=== PATIENT | female | born 1965 | race Caucasian/White ===

== ENCOUNTER 2020-12-14 06:39 | Emergency (ER) | payer BC ==
[2020-12-14] MEDS ORDERED: Sodium Chloride 0.9% 1000 ML 1,000 ML IV STA (07:38)
[2020-12-14] MEDS ORDERED: Sodium Chloride 0.9% 1000 ML 1,000 ML ONE (07:47)
--- NOTE | 2020-12-14 07:58 | ERPHSYRPT ---
- History of Present Illness Time Seen by Provider: 12/14/20 07:05 Historian: patient Exam Limitations: no limitations Patient Subjective Stated Complaint: pt c/o abd pain since Friday evening, indigestion, nausea and no vomiting. Triage Nursing Assessment: pt c/o abd pain since last Friday evening, nausea, indigestion but no vomiting. Pt has some low back pain but also has psoriatic arthritis. Pt c/o abd pain going straight across abd, bs present x4 quad, nontender. Pt denies diarrhea. Physician History: Patient is a 55-year-old female presents to our ED with complaints of abdominal pain that has been ongoing for 5 days. Patient followed up with her primary care doctor who ordered basic labs. Labs were within normal limits. Labs were performed on 12/11/2020. Abdominal pain described as an ache that is primarily epigastric. Patient concerned that it may be her hiatal hernia. Patient is mildly nauseous. No vomiting. No diaphoresis. No trauma no fever. Symptoms are constant. Symptoms are moderate in intensity. No specific worsening or improving factors. Patient states he is otherwise healthy. She voices no other complaints concerns at this time. Timing/Duration: day(s) (5 days) Activities at Onset: none Quality: aching Abdominal Pain Onset Location: epigastric Pain Radiation: no radiation Severity of Pain-Max: mild Severity of Pain-Current: moderate Modifying Factors: Improves With: nothing Associated Symptoms: other (Patient has some lower back discomfort however patient believes this may be due to her psoriatic arthritis) Previous symptoms: no prior history Allergies/Adverse Reactions: aspirin Allergy (Intermediate, Verified 12/14/20 07:02) Swelling of Face cantaloupe Adverse Reaction (Intermediate, Verified 12/14/20 07:03) Difficulty Breathing latex Adverse Reaction (Mild, Verified 12/14/20 07:02) Rash Hx Tetanus, Diphtheria Vaccination/Date Given: Yes Hx Influenza Vaccination/Date Given: No Hx Pneumococcal Vaccination/Date Given: No Immunizations Up to Date: Yes Travel Risk - International Travel Have you traveled outside of the country in past 3 weeks: No - Coronavirus Screening Are you exhibiting any of the following symptoms?: No Close contact with a COVID-19 positive Pt in past 14-21 Days: No - Vaccine Status Have you recieved a Covid-19 vaccination: Yes Reception Manager: Moderna - Vaccination Dates Date of 2cond Vaccination (if applicable): 10/13/20 - Review of Systems Constitutional: No Symptoms, No Fever, No Chills Eyes: No Symptoms Ears, Nose, & Throat: No Symptoms Respiratory: No Symptoms, No Cough, No Dyspnea Cardiac: No Symptoms, No Chest Pain, No Edema, No Syncope Abdominal/Gastrointestinal: No Symptoms, No Abdominal Pain, No Nausea, No Vomiting, No Diarrhea Genitourinary Symptoms: No Symptoms, No Dysuria Musculoskeletal: No Symptoms, No Back Pain, No Neck Pain Skin: No Symptoms, No Rash Neurological: No Symptoms, No Dizziness, No Focal Weakness, No Sensory Changes Psychological: No Symptoms Endocrine: No Symptoms Hematologic/Lymphatic: No Symptoms Immunological/Allergic: No Symptoms All Other Systems: Reviewed and Negative - Past Medical History Pertinent Past Medical History: Yes Neurological History: Migraines ENT History: No Pertinent History Cardiac History: High Cholesterol, Hypertension Respiratory History: Asthma, Bronchitis, Pneumonia Endocrine Medical History: Hypothyroidism, Other Musculoskeletal History: Arthritis GI Medical History: Diverticulitis, GERD, Hernia History: No Pertinent History Psycho-Social History: No Pertinent History Female Reproductive Disorders: Endometriosis, Menstrual Problems - Past Surgical History Past Surgical History: Yes Neuro Surgical History: No Pertinent History Cardiac: No Pertinent History Respiratory: No Pertinent History Gastrointestinal: No Pertinent History Genitourinary: No Pertinent History Musculoskeletal: No Pertinent History Female Surgical History: Hysterectomy - Social History Smoking Status: Current every day smoker How long have you smoked: 34 yrs Exposure to second hand smoke: No Drug Use: none Patient Lives Alone: No - Female History Hx Now: No - Nursing Vital Signs Nursing Vital Signs: Initial Vital Signs Temperature 98.0 F 12/14/20 06:46 Pulse Rate 96 H 12/14/20 06:46 Respiratory Rate 20 12/14/20 06:46 Blood Pressure 193/127 12/14/20 06:46 O2 Sat by Pulse Oximetry 97 12/14/20 06:46 Pain Scale Pain Intensity 4 - Physical Exam General Appearance: no apparent distress, alert Eye Exam: PERRL/EOMI, eyes nml inspection Ears, Nose, Throat Exam: normal ENT inspection, pharynx normal, moist mucous membranes Neck Exam: normal inspection, non-tender, supple, full range of motion Respiratory Exam: normal breath sounds, lungs clear, No respiratory distress Cardiovascular Exam: regular rate/rhythm, normal heart sounds Gastrointestinal/Abdomen Exam: soft, tenderness, other (Epigastric tenderness to palpation. Overlying soft tissue intact. No signs of trauma.), No mass Back Exam: normal inspection, normal range of motion, No CVA tenderness, No vertebral tenderness Extremity Exam: normal inspection, normal range of motion, pelvis stable Neurologic Exam: alert, oriented x 3, cooperative, normal mood/affect, nml cerebellar function, sensation nml, No motor deficits Skin Exam: normal color, warm, dry Lymphatic Exam: No adenopathy SpO2 Interpretation: normal SpO2: 95 O2 Delivery: Room Air - Course Nursing assessment & vital signs reviewed: Yes EKG Interpreted by Me: RATE (73), Sinus Rhythm, NORMAL AXIS, NORMAL INTERVALS - CT Exams Abdomen/Pelvis CT Interpretation: Tele-radiologist Report (Lining diverticulosis, chronic bony findings, old granulomatous disease. Remaining CT abdomen pelvis without contrast exam is negative) Ordered Tests: Active Orders 24 hr Category Date Time Status EKG-ER Only STAT Care 12/14/20 07:38 Active IV Insertion STAT Care 12/14/20 07:38 Active ABDOMEN AND PELVIS W/0 CONTRAS [CT] Stat Exams 12/14/20 07:48 Completed LIPASE Stat Lab 12/14/20 07:51 Completed TROPONIN Q3H Lab 12/14/20 07:51 Completed TROPONIN Q3H Lab 12/14/20 10:45 Ordered TROPONIN Q3H Lab 12/14/20 13:45 Ordered TROPONIN Q3H Lab 12/14/20 16:45 Ordered TROPONIN Q3H Lab 12/14/20 19:45 Ordered Medication Summary Discontinued Medications Generic Name Dose Route Start Last Admin Trade Name Freq PRN Reason Stop Dose Admin Sodium Chloride 1,000 mls @ 999 mls/hr 12/14/20 07:38 12/14/20 07:50 Sodium Chloride 0.9% 1000 Ml IV 12/14/20 08:38 999 mls/hr .Q1H1M STA Administration Sodium Chloride Confirm 12/14/20 07:47 Sodium Chloride 0.9% 1000 Ml Administered 12/14/20 07:48 Dose 1,000 mls @ ud .ROUTE .STK-MED ONE Lab/Rad Data: Laboratory Results 12/14/20 12/14/20 Range/Units 07:51 07:51 Troponin I < 0.012 (0.000-0.034) ng/mL Lipase 144 (23-300) U/L - Progress Progress: improved Progress Note: Patient reassessed. She continues to feel "okay". Patient declined pain medication. Patient recently had a complete laboratory work-up. This was ordered by her primary care doctor labs are all within normal limits. No indication to repeat these labs at this time. However we did add labs that were not originally done. Lipase is within normal limits. Troponin negative. EKG is normal sinus rhythm. CT abdomen pelvis shows diverticulosis chronic bony findings and old granulomatous disease. Remaining CT abdomen pelvis without contrast exam is negative. Patient received a prescription for Bentyl. No indication for further work-up at this time. Patient appears comfortable. Vitals stable. Patient voices no other complaints concerns at this time. Will discharge home. Patient agrees to follow-up with her primary care doctor within 48 hours for reevaluation. 12/14/20 08:57 Counseled pt/family regarding: lab results, diagnosis, need for follow-up, rad results - Departure Departure Disposition: Home Clinical Impression: Abdominal pain, Diverticulosis, Levoscoliosis, Degenerative arthritis of spine Condition: Stable Critical Care Time: No Referrals: SALINAS BULL MD [Primary Care Provider] - Additional Instructions: Discharge/Care Plan JESSICA WEIR was seen on 12/14/20 in the Emergency Room. The patient was counseled regarding Diagnosis,Lab results, Imaging studies, need for follow up and when to return to the Emergency Room. Prescriptions given: Discharge Note I have spoken with the patient and/or caregivers. I have explained the patient's condition, diagnosis and treatment plan based on the information available to me at this time. I have answered the patient's and/or caregiver's questions and addressed any concerns. The patient and/or caregivers have as good understanding of the patient's diagnosis, condition and treatment plan as can be expected at this point. The vital signs have been stable. The patient's condition is stable and appropriate for discharge from the emergency department. The patient will pursue further outpatient evaluation with the primary care physician or other designated or consulting physician as outlined in the discharge instructions. The patient and/or caregivers are agreeable to this plan of care and follow-up instructions have been explained in detail. The patient and/or caregivers have received these instruction. The patient/and or caregivers are aware that any significant change in condition or worsening of symptoms should prompt an immediate return to this or the closest emergency department or call 911. Prescriptions: Dicyclomine HCl 20 mg [Bentyl 20 mg] 20 mg PO TID 5 Days #15 tablet
--- NOTE | 2020-12-14 08:45 | XRAY ---
Indication: Abdomen pain. Multiple contiguous axial images obtained through the abdomen and pelvis without contrast. Comparison: None Lung bases demonstrate mild bibasilar discoid atelectasis/scarring and a few tiny calcified granulomas. No infiltrate or effusion. Heart is not enlarged. Noncontrasted stomach and bowel loops appear nonobstructed. Normal air-filled appendix. Mild scattered colonic diverticulosis without diverticulitis. Tiny hepatic calcified granuloma. Uterus surgically absent. No free fluid/air. Remaining liver, gallbladder, pancreas, spleen, adrenal glands, kidneys, ureters, and bladder appear unremarkable for noncontrast exam. Mild scattered aortoiliac calcifications without AAA. Osseous structures intact with degenerative changes throughout the thoracolumbar spine, minimal levoscoliosis centered at L3, and 3-4 mm right femur head bone island. No ventral or inguinal hernias. Impression: 1. Colonic diverticulosis, chronic bony findings, and old granulomatous disease. 2. Remaining CT abdomen/pelvis without contrast exam is negative.
[2020-12-14 09:15] VITALS: BP 122/71; PULSE 68; O2SAT 99
== END 2020-12-14 09:20 | disposition home or self-care (01) ==
LOC: ED 06:39
DX: R10.9 Unspecified abdominal pain (principal); K57.90 Diverticulosis of intestine, part unspecified, without perforation or abscess without bleeding; M41.9 Scoliosis, unspecified; M46.96 Unspecified inflammatory spondylopathy, lumbar region; I10 Essential (primary) hypertension; K21.9 Gastro-esophageal reflux disease without esophagitis; E78.00 Pure hypercholesterolemia, unspecified; E03.9 Hypothyroidism, unspecified; N80.9 Endometriosis, unspecified; Z72.0 Tobacco use
CPT/HCPCS: 36000; 36415; 74176; 83690; 84484; 93005; 96360; 99284

== ENCOUNTER 2024-11-14 12:36 | Emergency (ER) | payer BC ==
[2024-11-14 12:49] VITALS: TEMP 97.1
--- NOTE | 2024-11-14 12:50 | ERPHSYRPT ---
- History of Present Illness Time Seen by Provider: 11/14/24 12:40 Source: patient Exam Limitations: no limitations Physician History: 59yo f pmhx DM2, partial hysterectomy, frequent UTIs presents via private vehicle for dysuria, frequency and hematuria that started last night. Pt reports her hematuria has significantly worsened this AM, states she has never seen this much blood in her urine before. Pt denies any significant abdominal pain, does endorse some left sided low back pain but denies flank pain, n/v or diarrhea. Pt denies any fevers at home. Timing/Duration: yesterday Quality: burning Onset Location: suprapubic, low back pain Pain Radiation: none Severity of Pain-Max: mild Severity of Pain-Current: mild Prior abdominal problems: UTI Sexual intercourse history: non-contributory Modifying Factors: Improves With: nothing Associated Symptoms: dysuria, polyuria, urinary frequency, lower back pain, No abdominal pain, No fever, No loss of bladder control Allergies/Adverse Reactions: aspirin Allergy (Intermediate, Verified 11/14/24 12:50) Swelling of Face Sulfa (Sulfonamide Antibiotics) Allergy (Verified 11/14/24 12:50) cantaloupe Adverse Reaction (Intermediate, Verified 11/14/24 12:50) Difficulty Breathing latex Adverse Reaction (Mild, Verified 11/14/24 12:50) Rash Home Medications: Empagliflozin/Metformin HCl [Synjardy Xr 25-1,000 mg Tablet] 1 each PO DAILY 11/14/24 [History] Famotidine [Pepcid] 40 mg PO DAILY 11/14/24 [History] Fluticasone Propionate [Flonase NASAL] 2 sprays IN DAILY 11/14/24 [History] Hydrochlorothiazide 25 mg [hydroDIURIL 25 MG] 25 mg PO DAILY 11/14/24 [History] Rosuvastatin Calcium [Crestor] 5 mg PO DAILY 11/14/24 [History] Hx Tetanus, Diphtheria Vaccination/Date Given: Yes Hx Influenza Vaccination/Date Given: No Hx Pneumococcal Vaccination/Date Given: No - Review of Systems Constitutional: No Symptoms Respiratory: No Symptoms Cardiac: No Symptoms Abdominal/Gastrointestinal: Abdominal Pain, No Nausea, No Vomiting, No Diarrhea, No Constipation Genitourinary Symptoms: Dysuria, Frequency, Hematuria, Urgency, No Urinary Retention, No Flank Pain - Past Medical History Pertinent Past Medical History: Yes Neurological History: Migraines ENT History: No Pertinent History Cardiac History: High Cholesterol, Hypertension Respiratory History: Asthma, Bronchitis, Pneumonia Endocrine Medical History: Hypothyroidism, Other Musculoskeletal History: Arthritis GI Medical History: Diverticulitis, GERD, Hernia History: No Pertinent History Psycho-Social History: No Pertinent History Female Reproductive Disorders: Endometriosis, Menstrual Problems - Past Surgical History Past Surgical History: Yes Neuro Surgical History: No Pertinent History Cardiac: No Pertinent History Respiratory: No Pertinent History Gastrointestinal: No Pertinent History Genitourinary: No Pertinent History Musculoskeletal: No Pertinent History Female Surgical History: Hysterectomy - Social History Smoking Status: Current every day smoker How long have you smoked: 34 yrs Exposure to second hand smoke: No Drug Use: none Patient Lives Alone: No - Nursing Vital Signs Nursing Vital Signs: Initial Vital Signs Temperature 97.1 F 11/14/24 12:44 Pulse Rate 75 11/14/24 12:44 Respiratory Rate 26 H 11/14/24 12:44 Blood Pressure 109/80 11/14/24 12:44 O2 Sat by Pulse Oximetry 98 11/14/24 12:44 Pain Scale Pain Intensity 0 - Physical Exam General Appearance: no apparent distress, alert Respiratory Exam: normal breath sounds, lungs clear, airway intact, No chest t enderness, No respiratory distress Cardiovascular Exam: regular rate/rhythm, normal heart sounds, normal peripheral pulses Gastrointestinal/Abdomen Exam: soft, normal bowel sounds, No tenderness, No distention, No mass, No guarding SpO2 Interpretation: normal SpO2: 98 O2 Delivery: Room Air Ordered Tests: Active Orders 24 hr Category Date Time Status ABDOMEN AND PELVIS W/0 CONTRAS [CT] Stat Exams 11/14/24 13:11 Completed CBC W DIFF Stat Lab 11/14/24 13:10 Completed CK (IN-HOUSE) [CK-Creatinine Phosphokinase] Stat Lab 11/14/24 13:10 Completed CMP Stat Lab 11/14/24 13:10 Completed CULTURE,URINE Stat Lab 11/14/24 12:44 Received UA W/RFX UR CULTURE Stat Lab 11/14/24 12:44 Completed Medication Summary Discontinued Medications Generic Name Dose Route Start Last Admin Trade Name Freq PRN Reason Stop Dose Admin Cefdinir 300 mg 11/14/24 14:04 11/14/24 14:18 Cefdinir 300 Mg Capsule PO 11/14/24 14:05 300 mg ONCE ONE Administration Lab/Rad Data: Laboratory Result Diagrams 11/14/24 13:10 11/14/24 13:10 Laboratory Results 11/14/24 11/14/24 11/14/24 Range/Units 13:10 13:10 13:10 WBC 10.2 H (3.98-10.04) x10^3/uL RBC 5.38 H (3.93-5.22) x10^6/uL Hgb 16.4 H (11.2-15.7) g/dL Hct 47.3 H (34.1-44.9) % MCV 87.9 (79.4-94.8) fL MCH 30.5 (25.6-32.2) pg MCHC 34.7 (32.2-35.5) g/dL RDW 13.2 (11.7-14.4) % Plt Count 236 (182-369) x10^3/uL MPV 9.8 (9.4-12.3) fL Gran % 68.5 (34.0-71.1) % Immature Gran % (Auto) 0.3 (0.001-0.429) % Nucleat RBC Rel Count 0.0 (0.00-0.2) % Eos # (Auto) 0.14 (0.04-0.36) x10^3/uL Immature Gran # (Auto) 0.03 (0.001-0.031) x10^3u/L Absolute Lymphs (auto) 2.31 (1.18-3.74) x10^3/uL Absolute Monos (auto) 0.67 (0.24-0.86) x10^3/uL Absolute Nucleated RBC 0.00 (0.00-0.012) x10^3u/L Lymphocytes % 22.7 (19.3-51.7) % Monocytes % 6.6 (4.7-12.5) % Eosinophils % 1.4 (0.7-5.8) % Basophils % 0.5 (0.1-1.2) % Absolute Granulocytes 6.98 H (1.56-6.13) x10^3/uL Basophils # 0.05 (0.01-0.08) x10^3/uL Sodium 138 (135-145) mmol/L Potassium 3.4 L (3.5-5.1) mmol/L Chloride 101 (98-107) mmol/L Carbon Dioxide 23 (22-30) mmol/L Anion Gap 17.1 H (5-15) MEQ/L BUN 13 (7-17) mg/dL Creatinine 0.55 (0.52-1.04) mg/dL Estimated GFR 105.5 ML/MIN Glucose 95 (74-106) mg/dL Calcium 9.8 (8.4-10.2) mg/dL Total Bilirubin 0.90 (0.2-1.3) mg/dL AST 38 H (14-36) U/L ALT 34 (0-35) U/L Alkaline Phosphatase 78 (38-126) U/L Creatine Kinase 40 (30-135) U/L Serum Total Protein 8.1 (6.3-8.2) g/dL Albumin 4.9 (3.5-5.0) g/dL Urine Color (Yellow) Urine Appearance (Clear) Urine pH (4.6-8.0) Ur Specific Molino (1.005-1.030) Urine Protein (Negative) Urine Glucose (UA) (Negative) mg/dL Urine Ketones (Negative) Urine Blood (Negative) Urine Nitrite (Negative) Urine Bilirubin (Negative) Urine Urobilinogen (0.2) mg/dL Ur Leukocyte Esterase (Negative) U Hyaline Cast (Auto) (0-2) /LPF Urine Microscopic RBC (0-5) /HPF Urine Microscopic WBC (0-5) /HPF Ur Epithelial Cells (None Seen) /HPF Urine Bacteria (None Seen) /HPF Urine Culture Reflexed (NO) 11/14/24 Range/Units 12:44 WBC (3.98-10.04) x10^3/uL RBC (3.93-5.22) x10^6/uL Hgb (11.2-15.7) g/dL Hct (34.1-44.9) % MCV (79.4-94.8) fL MCH (25.6-32.2) pg MCHC (32.2-35.5) g/dL RDW (11.7-14.4) % Plt Count (182-369) x10^3/uL MPV (9.4-12.3) fL Gran % (34.0-71.1) % Immature Gran % (Auto) (0.001-0.429) % Nucleat RBC Rel Count (0.00-0.2) % Eos # (Auto) (0.04-0.36) x10^3/uL Immature Gran # (Auto) (0.001-0.031) x10^3u/L Absolute Lymphs (auto) (1.18-3.74) x10^3/uL Absolute Monos (auto) (0.24-0.86) x10^3/uL Absolute Nucleated RBC (0.00-0.012) x10^3u/L Lymphocytes % (19.3-51.7) % Monocytes % (4.7-12.5) % Eosinophils % (0.7-5.8) % Basophils % (0.1-1.2) % Absolute Granulocytes (1.56-6.13) x10^3/uL Basophils # (0.01-0.08) x10^3/uL Sodium (135-145) mmol/L Potassium (3.5-5.1) mmol/L Chloride (98-107) mmol/L Carbon Dioxide (22-30) mmol/L Anion Gap (5-15) MEQ/L BUN (7-17) mg/dL Creatinine (0.52-1.04) mg/dL Estimated GFR ML/MIN Glucose (74-106) mg/dL Calcium (8.4-10.2) mg/dL Total Bilirubin (0.2-1.3) mg/dL AST (14-36) U/L ALT (0-35) U/L Alkaline Phosphatase (38-126) U/L Creatine Kinase (30-135) U/L Serum Total Protein (6.3-8.2) g/dL Albumin (3.5-5.0) g/dL Urine Color Red A (Yellow) Urine Appearance Turbid A (Clear) Urine pH 7.0 (4.6-8.0) Ur Specific Molino 1.015 (1.005-1.030) Urine Protein 100 A (Negative) Urine Glucose (UA) 500 A (Negative) mg/dL Urine Ketones Negative (Negative) Urine Blood Large A (Negative) Urine Nitrite Negative (Negative) Urine Bilirubin Small A (Negative) Urine Urobilinogen 0.2 (0.2) mg/dL Ur Leukocyte Esterase Large A (Negative) U Hyaline Cast (Auto) NONE SEEN (0-2) /LPF Urine Microscopic RBC >100 A (0-5) /HPF Urine Microscopic WBC >100 A (0-5) /HPF Ur Epithelial Cells None Seen (None Seen) /HPF Urine Bacteria Rare A (None Seen) /HPF Urine Culture Reflexed YES (NO) - Progress Progress: improved Air Movement: good Progress Note: 11/14/24 14:09 UA showing myriam hematuria, significant glucose, significant cystitis hgb > 15 will start cefdinir for coverage of cystitis vs pyelonephritis CT abd/pel pending CT showed 1. Urinary bladder wall thickening. US correlation is advised to rule out cystitis. New 2. No renal calculi or hydronephrosis. 3. A small gallstone could not be excluded. US correlation is advised. New 4. A few small diverticula arising from the descending colon. No evidence of diverticulitis. Stable. 5. Bilobal small calcification noted, mildly enlarged in size. plan for discharge home w/ close PCP follow up on 11/15/24 (Coby) will need referral to urology, recommend referral to Dr Westfall [facility] complete entire 7 day course of cefdinir antibiotic recommend plenty of oral hydration w/ clear liquids recommend avoid NSAID medications (aspirin, ibuprofen, naproxen) return to ED if: develop pain that is unbearable, develop light-headedness, develop weakness, have episode of passing out, develop shortness of breath, develop fevers that do not resolve w/ tylenol 11/14/24 14:28 Blood Culture(s) Obtained: No Antibiotics given: Yes, No Counseled pt/family regarding: lab results, diagnosis, need for follow-up, rad results Medical Desision Making - Diagnostic Testing Diagnostic test were ordered, analyzed, and reviewed by me: Yes Radiological Interpretation: Reviewed by me, Teleradiologist Report - Risk of complications Low Risk: Low risk of morbidity from additional dx testing or treatment - Departure Departure Disposition: Home Clinical Impression: Hematuria Qualifiers: Hematuria type: gross Qualified Code(s): R31.0 - Gross hematuria UTI (urinary tract infection) Qualifiers: Urinary tract infection type: acute cystitis Hematuria presence: with hematuria Qualified Code(s): N30.01 - Acute cystitis with hematuria Condition: Stable Critical Care Time: No Referrals: SALINAS BULL MD [Primary Care Provider] - Follow up/PCP as directed Additional Instructions: plan for discharge home w/ close PCP follow up on 11/15/24 (Coby) will need referral to urology, recommend referral to Dr Westfall - [facility] complete entire 7 day course of cefdinir antibiotic recommend plenty of oral hydration w/ clear liquids recommend avoid NSAID medications (aspirin, ibuprofen, naproxen) return to ED if: develop pain that is unbearable, develop light-headedness, develop weakness, have episode of passing out, develop shortness of breath, develop fevers that do not resolve w/ tylenol Prescriptions: Cefdinir [Omnicef 300 mg] 300 mg PO BID 7 Days #13 cap
[2024-11-14 13:05] LABS: Appearance Turbid (Clear); Bacteria Rare /HPF (None Seen); Bilirubin Small (Negative); Blood Large (Negative); Epithelial Cells None Seen /HPF (None Seen); Glucose, Urine 500 mg/dL (Negative); Hyaline Casts NONE SEEN /LPF (0-2); Ketones Negative (Negative); Leukocyte Esterase Large (Negative); Nitrite Negative (Negative); Protein,Urine Dip 100 (Negative); RBC >100 /HPF (0-5); Specific Gravity 1.015 (1.005-1.030); Urobilinogen 0.2 mg/dL (0.2); WBC >100 /HPF (0-5)
[2024-11-14 13:10] LABS: Absolute Neutrophil Ct (ANC) 6.98 x10^3/uL (1.56-6.13); BASOPHIL % 0.5 % (0.1-1.2); Basophil (Absolute #) 0.05 x10^3/uL (0.01-0.08); Eosinophil % 1.4 % (0.7-5.8); Eosinophil (Absolute #) 0.14 x10^3/uL (0.04-0.36); Hematocrit 47.3 % (34.1-44.9); Hemoglobin 16.4 g/dL (11.2-15.7); IMMATURE GRAN # 0.03 x10^3u/L (0.001-0.031); IMMATURE GRAN % 0.3 % (0.001-0.429); Lymphocyte (Absolute #) 2.31 x10^3/uL (1.18-3.74); Lymphocytes % 22.7 % (19.3-51.7); Mean Cell Volume 87.9 fL (79.4-94.8); Mean Corpuscular Hemoglobin 30.5 pg (25.6-32.2); Mean Corpuscular Hgb Concent. 34.7 g/dL (32.2-35.5); Mean Platelet Volume 9.8 fL (9.4-12.3); Monocyte (Absolute #) 0.67 x10^3/uL (0.24-0.86); Monocytes % 6.6 % (4.7-12.5); Neutrophil % 68.5 % (34.0-71.1); Platelet Count 236 x10^3/uL (182-369); Red Blood Count 5.38 x10^6/uL (3.93-5.22); Red Cell Distribution Width 13.2 % (11.7-14.4); White Blood Count 10.2 x10^3/uL (3.98-10.04)
[2024-11-14 13:22] LABS: ALBUMIN 4.9 g/dL (3.5-5.0); ANION GAP 17.1 MEQ/L (5-15); BILIRUBIN,TOTAL 0.9 mg/dL (0.2-1.3); Calcium 9.8 mg/dL (8.4-10.2); Creatinine 1 0.55 mg/dL (0.52-1.04); EST GLOMERULAR FILTRATION RATE 105.5 ML/MIN; Potassium 3.4 mmol/L (3.5-5.1); Total Protein 8.1 g/dL (6.3-8.2)
[2024-11-14 13:41] VITALS: PULSE 70
[2024-11-14] MEDS: OMNICEF 300 MG PO ONE (14:18)
[2024-11-14 14:20] VITALS: O2SAT 98
[2024-11-14 14:22] VITALS: BP 132/85; RESP 17
--- NOTE | 2024-11-14 14:24 | XRAY ---
CLINICAL HISTORY: hematuria, dysuria COMPARISON: Comparison is made with CT dated 12/14/2020. TECHNIQUE: Non-contrast CT of the abdomen and pelvis was performed, with the following protocol: axial images, and reconstructed coronal and sagittal images. One of the following dose reduction techniques was utilized for this exam: Automated exposure control, adjustment of the mA and/or kV according to patient size, and use of iterative reconstruction. FINDINGS: Abdomen: Liver: Normal in size, shape, and density. No focal lesions, cysts, or masses were identified. Bilobal small calcification noted, mildly enlarged in size. Gallbladder and Biliary System: The gallbladder is normal in size and shape. No wall thickening, pericholecystic fluid. A small gallstone could not be excluded ( more seen on the coronal). Pancreas: Pancreatic head, body, and tail are visualized and appear normal in size and density. No pancreatic masses or calcifications were noted. Spleen: Normal in size, shape, and density. No splenic lesions or masses were identified. Splenula noted. Kidneys and Adrenal Glands: Both kidneys are normal in size, shape, and position. Cortical thickness is within normal limits. No renal calculi or hydronephrosis. Adrenal glands are unremarkable. Appendix: The appendix is normal in size without nate-appendiceal fat stranding and without an appendicolith. No evidence of appendiceal abscess or perforation. Pelvis: Urinary bladder wall thickening/ not-destined. Uterus and Ovaries: Not well visualized but no gross abnormalities noted. Vagina: Normal in contour and wall thickness. Cervix: No evidence of mass or abnormal thickening. Peritoneal and Retroperitoneal Structures: No free fluid or abnormal fluid collections were identified within the abdomen or pelvis. No lymphadenopathy was noted. Bowel: The visualized bowel loops are normal in caliber and appearance. A few small diverticula arising from the descending colon. No evidence of diverticulitis. No evidence of bowel obstruction or wall thickening. Bones and Soft Tissues: Pelvic bones and soft tissues are unremarkable. No fractures or abnormal masses were identified. IMPRESSION: 1. Urinary bladder wall thickening. US correlation is advised to rule out cystitis. New 2. No renal calculi or hydronephrosis. 3. A small gallstone could not be excluded. US correlation is advised. New 4. A few small diverticula arising from the descending colon. No evidence of diverticulitis. Stable. 5. Bilobal small calcification noted, mildly enlarged in size. Electronically Signed by: José Miguel Nelson MD. (11/14/2024 14:21:30 EDT)
== END 2024-11-14 14:46 | disposition home or self-care (01) ==
LOC: ED 12:36
DX: N30.01 Acute cystitis with hematuria (principal); R30.0 Dysuria; R35.0 Frequency of micturition; E78.5 Hyperlipidemia, unspecified; I10 Essential (primary) hypertension; Z79.899 Other long term (current) drug therapy; Z72.0 Tobacco use
CPT/HCPCS: 36415; 74176; 80053; 81001; 82550; 85025; 87077; 87086; 87186; 99284; A9270-GY